=== PATIENT | female | born 1955 | race African-American/Black ===

== ENCOUNTER 2017-05-15 14:45 | Emergency (ER) | payer OTHER, MEDICAID ==
[~2017-05-15] VITALS: Ht 160 cm; Wt 109.0 kg
[~2017-05-15 14:45] MED LIST: LISI1TAB13 PO; METO50TA5 PO; SERT-112 PO
[2017-05-15] MEDS ORDERED: KETOROLAC 30MG/ML VIAL IV STA (22:36)
[2017-05-15] MEDS ORDERED: ONDANSETRON 4MG ODT PO STA (22:36)
[2017-05-15] MEDS ORDERED: SODIUM CHLORIDE 0.9% 500 ML IV ONE (22:36)
[2017-05-15 22:53] LABS: BASOPHILS % 0.9 % (0.0-2.0); EOSINOPHILS % 2.3 % (0.0-5.0); HEMATOCRIT. 38.7 % (36.0-48.0); HEMOGLOBIN. 13.4 g/dL (12.0-16.0); LYMPHOCYTES % 35.6 % (20.0-50.0); MEAN CORPUSCULAR HEMOGLOBIN 28.3 pg (28.0-32.0); MEAN PLATELET VOLUME 10.4 fl (7.4-10.4); MONOCYTES % 7.6 % (2.0-8.0); NEUTROPHILS % 53.6 % (40.0-76.0); PLATELET 129 x1000/uL (130-400); RED BLOOD CELL COUNT 4.72 mill/uL (4.2-5.4); RED CELL DISTRIBUTION WIDTH 15.2 % (11.6-14.6)
[2017-05-15 22:59] LABS: CHLORIDE 104 mEq/L (98-107)
[2017-05-15 23:00] LABS: PROTHROMBIN TIME 10.7 sec (9.4-11.6)
[2017-05-15 23:01] LABS: CLARITY URINE CLEAR (CLEAR); COLOR URINE YELLOW (YELLOW); GLUCOSE URINE NEGATIVE (NEGATIVE); KETONES URINE 2+ (NEGATIVE); LEUKOCYTE ESTERASE URINE TRACE (NEGATIVE); NITRITE URINE NEGATIVE (NEGATIVE); OCCULT BLOOD URINE NEGATIVE (NEGATIVE); PROTEIN URINE 1+ (NEGATIVE); SPECIFIC GRAVITY URINE 1.032 (1.005-1.030)
[2017-05-15 23:05] LABS: CARBON DIOXIDE 31 mEq/L (21-32)
[2017-05-16] MEDS ORDERED: CEFTRIAXONE 1 G PREMIX 50 ML IV ONE (00:15)
[2017-05-16 01:32] VITALS: BP 145/88
== END 2017-05-16 01:35 | disposition home or self-care (01) ==
LOC: ER 16:13
DX: R10.32 Left lower quadrant pain (principal); E11.9 Type 2 diabetes mellitus without complications; I11.0 Hypertensive heart disease with heart failure; I50.9 Heart failure, unspecified; J44.9 Chronic obstructive pulmonary disease, unspecified; E78.00 Pure hypercholesterolemia, unspecified; F17.200 Nicotine dependence, unspecified, uncomplicated
CPT/HCPCS: 36415; 74000; 80053; 81001; 83690; 85025; 85610; 96361; 96365; 96375; 99285; J0696; J1885; J7040; Q0162

== ENCOUNTER 2019-04-01 11:52 | Inpatient (IN) | payer MEDICAID, MEDICARE, OTHER ==
[~2019-04-01] VITALS: Ht 160 cm; Wt 92.5 kg
[~2019-04-01 11:52] MED LIST changes: +METO-539 PO; -METO50TA5 PO
[2019-04-01] MEDS ORDERED: METHYLPREDNISOLONE SOD SUCC 125 MG/2 ML VIAL IV STA (13:03)
[2019-04-01] MEDS ORDERED: MAGNESIUM 2 G PREMIX 50 ML IV STA (13:03)
[2019-04-01] MEDS ORDERED: IPRATROPIUM BROMIDE (0.02%) 0.5MG/2.5ML NEB HHN STA (13:03)
[2019-04-01] MEDS ORDERED: ONDANSETRON HCL 4MG/2ML INJ IV STA (13:03)
[2019-04-01] MEDS ORDERED: MORPHINE SULFATE 4 MG/ML CPJ (NOT FOR IM USE) IV STA (13:03)
[2019-04-01] MEDS ORDERED: ALBUTEROL (0.083%) 2.5MG/3ML NEB HHN STA (13:03)
[2019-04-01] MEDS ORDERED: FAMOTIDINE 20MG/2ML VIAL IV STA (13:03)
[2019-04-01 13:31] LABS: BASOPHILS % 0.3 % (0.0-2.0); EOSINOPHILS % 1.4 % (0.0-5.0); HEMATOCRIT. 35.7 % (36.0-48.0); HEMOGLOBIN. 12.3 g/dL (12.0-16.0); LYMPHOCYTES % 13.8 % (20.0-50.0); MEAN CORPUSCULAR HEMOGLOBIN 28.9 pg (28.0-32.0); MEAN CORPUSCULAR VOLUME 84.1 fL (81.0-99.0); MONOCYTES % 6.1 % (2.0-8.0); NEUTROPHILS % 78.4 % (40.0-76.0); PLATELET 148 x1000/uL (130-400); RED BLOOD CELL COUNT 4.24 mill/uL (4.2-5.4); RED CELL DISTRIBUTION WIDTH 15.6 % (11.6-14.6)
[2019-04-01 13:34] LABS: CHLORIDE 109 mEq/L (98-107)
[2019-04-01] MEDS ORDERED: FUROSEMIDE 20MG/2ML VIAL IVP ONE (15:30)
[2019-04-01] MEDS ORDERED: ACETAMINOPHEN 650MG SUPP PR PRN (16:15)
[2019-04-01] MEDS ORDERED: ONDANSETRON HCL 4MG/2ML INJ IV PRN (16:15)
[2019-04-01] MEDS ORDERED: ACETAMINOPHEN 325MG TABLET PO PRN (16:15)
[2019-04-01] MEDS ORDERED: CLONIDINE 0.1MG TABLET PO PRN (16:15)
[2019-04-01] MEDS ORDERED: MAGNESIUM/ALUMINUM HYDROXIDE/SIMETHICONE 30ML UDC PO PRN (16:15)
[2019-04-01] MEDS ORDERED: LEVOFLOXACIN 500MG PREMIX 100 ML IV SCH (16:15)
[2019-04-01] MEDS ORDERED: IPRATROPIUM/ALBUTEROL 0.5-3(2.5)MG/3ML NEB NEB PRN (16:15)
[2019-04-01] MEDS ORDERED: GUAIFENESIN 200MG/10ML SUGAR FREE UDC PO PRN (16:15)
[2019-04-01] MEDS ORDERED: LORAZEPAM 0.5MG TABLET PO PRN (16:15)
[2019-04-01] MEDS ORDERED: DEXTROSE 50% WATER 50ML SYRINGE IV PRN (16:15)
[2019-04-01] MEDS ORDERED: NA PHOS,M-B/NA PHOS,DI-BA ENEMA 118ML PR PRN (16:15)
[2019-04-01] MEDS ORDERED: HYDROCODONE/ACETAMINOPHEN 5/325MG TABLET PO PRN (16:15)
[2019-04-01] MEDS ORDERED: DOCUSATE SODIUM 100MG CAPSULE PO PRN (16:15)
[2019-04-01] MEDS ORDERED: POTA20TA82 PO (17:00)
[2019-04-01] MEDS ORDERED: ANAS1TAB7 PO (17:00)
[2019-04-01] MEDS ORDERED: INSU100I28 SQ (17:00)
[2019-04-01] MEDS ORDERED: ALBU6.7H9 INH (17:00)
[2019-04-01 17:47] VITALS: BP 144/48
[2019-04-01] MEDS: METHYLPREDNISOLONE SOD SUCC 40 MG/ML VIAL IV SCH (17:51)
[2019-04-01] MEDS: PANTOPRAZOLE 40MG DR TABLET PO SCH (17:51)
[2019-04-01] MEDS: FOLIC ACID 1MG TABLET PO SCH (17:51)
[2019-04-01] MEDS: MULTIVITAMINS,THER W-MINERALS TABLET PO SCH (17:51)
[2019-04-01] MEDS: THIAMINE HCL 100MG TABLET PO SCH (17:51)
[2019-04-01] MEDS: NICOTINE 7MG PATCH TD SCH (17:52)
[2019-04-01] MEDS: BLOOD SUGAR DIAGNOSTIC STRIP TEST SCH ×2 (17:52→21:14)
[2019-04-01] MEDS: INSULIN LISPRO 100 UNITS/ML SUBCUT SCH ×2 (17:53→21:15)
[2019-04-01 18:58] LABS: CLARITY URINE CLEAR (CLEAR); COLOR URINE YELLOW (YELLOW); KETONES URINE 1+ (NEGATIVE); LEUKOCYTE ESTERASE URINE NEGATIVE (NEGATIVE); NITRITE URINE POSITIVE (NEGATIVE); OCCULT BLOOD URINE TRACE (NEGATIVE); PROTEIN URINE 1+ (NEGATIVE); SPECIFIC GRAVITY URINE 1.017 (1.005-1.030); UROBILINOGEN URINE 0.2 E.U./dL (0.2-1.0)
[2019-04-01 19:09] LABS: *AMPHETAMINES SCREEN URINE NEGATIVE (NEGATIVE); *BARBITURATES SCREEN URINE NEGATIVE (NEGATIVE); *BENZODIAZEPINES SCREEN URINE NEGATIVE (NEGATIVE); *COCAINE SCREEN URINE PRESUMTIVE POSITIVE (NEGATIVE); METHADONE URINE SCREEN NEGATIVE (NEGATIVE)
[2019-04-01 19:10] LABS: CANNABINOID URINE SCREEN PRESUMTIVE POSITIVE (NEGATIVE); OPIATES URINE SCREEN PRESUMTIVE POSITIVE (NEGATIVE); PHENCYCLIDINE URINE SCREEN NEGATIVE (NEGATIVE)
[2019-04-01 20:00] VITALS: BP 133/46
[2019-04-01] MEDS: BUDESONIDE 0.5MG/2ML NEB HHN SCH (20:06)
[2019-04-01] MEDS: IPRATROPIUM/ALBUTEROL 0.5-3(2.5)MG/3ML NEB NEB SCH (20:07)
[2019-04-01] MEDS: ENOXAPARIN 30MG/0.3ML SYR SUBCUT SCH (21:13)
[2019-04-01] MEDS: LEVOFLOXACIN 250MG PREMIX 50 ML IV SCH (21:14)
[2019-04-01 21:54] LABS: INR 1.1; PROTHROMBIN TIME 10.9 sec (9.6-11.0)
[2019-04-01 22:00] VITALS: BP 141/66
[2019-04-02] VITALS: BP 141/66
[2019-04-02 00:15] LABS: CREATINE KINASE 52 IU/L (26-192)
[2019-04-02 00:20] LABS: CREATINE KINASE MB FRACTION < 1.0 ng/mL (0.5-3.6)
[2019-04-02] MEDS: IPRATROPIUM/ALBUTEROL 0.5-3(2.5)MG/3ML NEB NEB SCH ×3 (01:53→15:25)
[2019-04-02] MEDS: METHYLPREDNISOLONE SOD SUCC 40 MG/ML VIAL IV SCH ×3 (02:03→17:24)
[2019-04-02 04:00] VITALS: BP 149/58
[2019-04-02] MEDS: PANTOPRAZOLE 40MG DR TABLET PO SCH (06:07)
[2019-04-02] MEDS: BLOOD SUGAR DIAGNOSTIC STRIP TEST SCH ×3 (06:07→17:24)
[2019-04-02] MEDS: INSULIN LISPRO 100 UNITS/ML SUBCUT SCH ×3 (06:15→17:15)
[2019-04-02 06:43] LABS: HEMATOCRIT. 33.5 % (36.0-48.0); HEMOGLOBIN. 11.5 g/dL (12.0-16.0); MEAN CORPUSCULAR HEMOGLOBIN 29.1 pg (28.0-32.0); MEAN CORPUSCULAR VOLUME 84.6 fL (81.0-99.0); MEAN PLATELET VOLUME 11.1 fl (7.4-10.4); PLATELET 134 x1000/uL (130-400); RED BLOOD CELL COUNT 3.96 mill/uL (4.2-5.4); RED CELL DISTRIBUTION WIDTH 15.9 % (11.6-14.6)
[2019-04-02] MEDS: DIPHENHYDRAMINE 50MG/ML VIAL IV PRN ×2 (06:48→18:10)
[2019-04-02 08:00] VITALS: BP 141/53
[2019-04-02] MEDS ORDERED: FUROSEMIDE 40MG/4ML VIAL IVP SCH (09:00)
[2019-04-02] MEDS: MULTIVITAMINS,THER W-MINERALS TABLET PO SCH (09:08)
[2019-04-02] MEDS: ENOXAPARIN 30MG/0.3ML SYR SUBCUT SCH (09:08)
[2019-04-02] MEDS: FOLIC ACID 1MG TABLET PO SCH (09:08)
[2019-04-02] MEDS: NICOTINE 7MG PATCH TD SCH (09:09)
[2019-04-02] MEDS: THIAMINE HCL 100MG TABLET PO SCH (09:09)
[2019-04-02] MEDS ORDERED: FUROSEMIDE 20MG/2ML VIAL IVP SCH (09:40)
[2019-04-02 10:05] LABS: CHLORIDE 105 mEq/L (98-107)
[2019-04-02 10:15] LABS: HDL CHOLESTEROL 61 mg/dL (40-59); LDL CHOLESTEROL 101 mg/dL (5-100)
[2019-04-02 10:17] LABS: CREATINE KINASE MB FRACTION < 1.0 ng/mL (0.5-3.6); T4 FREE 1.21 ng/dL (0.76-1.46)
[2019-04-02 10:20] LABS: CREATINE KINASE 45 IU/L (26-192)
[2019-04-02] MEDS: BUDESONIDE 0.5MG/2ML NEB HHN SCH (10:55)
[2019-04-02 11:10] LABS: BG BASE EXCESS 1.4 mmol/L (-2.0-2.0); BG CARBOXYHEMOGLOBIN 0.3 % (0.5-1.5); BG DEOXYHEMOGLOBIN 4.8 % (0.0-5.0); BG FRACTION INSPIRED OXYGEN 21; BG HCO3 ACT 25.9 mmol/L (22.0-26.0); BG METHEMOGLOBIN 0.3 % (0.0-1.5); BG OXYGEN SATURATION 95.2 % (92.0-98.5); BG OXYHEMOGLOBIN 94.6 % (94.0-97.0); BG PCO2 40.4 mmHg (35.0-45.0); BG PH 7.424 (7.350-7.450); BG PO2 76.7 mmHg (75.0-100.0); BG SAMPLE SITE RIGHT BRACHIAL; BG TOTAL HEMOGLOBIN 12.6 g/dL (12.0-18.0); BG VENT MODE ROOM AIR
[2019-04-02 12:00] VITALS: BP 138/48
[2019-04-02 13:12] LABS: PLATELET ESTIMATE NORMAL
[2019-04-02 16:00] VITALS: BP 133/48
[2019-04-02] MEDS: LEVOFLOXACIN 250MG PREMIX 50 ML IV SCH (17:24)
[2019-04-02 17:34] VITALS: BP 130/49
[2019-04-02] MEDS ORDERED: FAMOTIDINE 20MG TABLET PO SCH (21:00)
== END 2019-04-02 19:15 | disposition home or self-care (01) | DRG 917 ==
LOC: ER 11:52 → 5WST 15:30 → EDBEDREQTM 15:34 → ENRESERV 15:59 → SUPCPDRO 16:02
PROVIDERS: ADMIT Internal Medicine; ATTEND Internal Medicine
PROC: 5A09357 Assistance with Respiratory Ventilation, Less than 24 Consecutive Hours, Continuous Positive Airway Pressure (ICD-10-PCS; principal; 2019-04-02)
DX: T40.5X1A Poisoning by cocaine, accidental (unintentional), initial encounter (principal); I50.43 Acute on chronic combined systolic (congestive) and diastolic (congestive) heart failure; J44.1 Chronic obstructive pulmonary disease with (acute) exacerbation; E66.2 Morbid (severe) obesity with alveolar hypoventilation; N39.0 Urinary tract infection, site not specified; D68.59 Other primary thrombophilia; K29.20 Alcoholic gastritis without bleeding; R06.03 Acute respiratory distress; I11.0 Hypertensive heart disease with heart failure; K52.9 Noninfective gastroenteritis and colitis, unspecified; E78.00 Pure hypercholesterolemia, unspecified; E78.5 Hyperlipidemia, unspecified; E86.0 Dehydration; E11.9 Type 2 diabetes mellitus without complications; F17.210 Nicotine dependence, cigarettes, uncomplicated; K21.9 Gastro-esophageal reflux disease without esophagitis; N20.0 Calculus of kidney; I16.0 Hypertensive urgency; F14.90 Cocaine use, unspecified, uncomplicated; Z79.4 Long term (current) use of insulin; Z79.811 Long term (current) use of aromatase inhibitors; Z79.899 Other long term (current) drug therapy; Z90.10 Acquired absence of unspecified breast and nipple; Z90.710 Acquired absence of both cervix and uterus; Z85.3 Personal history of malignant neoplasm of breast; Z68.36 Body mass index [BMI] 36.0-36.9, adult; Z98.51 Tubal ligation status; Y92.89 Other specified places as the place of occurrence of the external cause
CPT/HCPCS: 36415; 36600; 71045; 74176; 80061; 80305; 81003; 82375; 82550; 82553; 82805; 82962; 83036; 83880; 84439; 84443; 84484; 87077; 87186; 93005; 93306; 93970; 94640; 94644; 94660; 97162; 99291; J1200; J1650; J1815; J1940; J1956; J2270; J2405; J2920; J2930; J3475; J3490; J7611; J7620; J7626

== ENCOUNTER 2019-09-30 10:06 | Emergency (ER) | payer MEDICARE, MEDICAID ==
[~2019-09-30] VITALS: Ht 152.4 cm; Wt 91.0 kg
[~2019-09-30 10:06] MED LIST changes: +ALBU6.7H9 INH; +INSU100I28 SQ; -METO-539 PO; -SERT-112 PO
[2019-09-30] MEDS ORDERED: ONDANSETRON HCL 4MG/2ML INJ IV STA (10:48)
[2019-09-30] MEDS ORDERED: SODIUM CHLORIDE 0.9% 250 ML IV ONE (10:48)
[2019-09-30] MEDS ORDERED: MORPHINE SULFATE 4 MG/ML CPJ (NOT FOR IM USE) IV STA (10:48)
[2019-09-30 11:21] LABS: BASOPHILS % 0.8 % (0.0-2.0); EOSINOPHILS % 1.9 % (0.0-5.0); HEMATOCRIT. 37.6 % (36.0-48.0); HEMOGLOBIN. 12.9 g/dL (12.0-16.0); LYMPHOCYTES % 10.6 % (20.0-50.0); MEAN CORPUSCULAR HEMOGLOBIN 30.2 pg (28.0-32.0); MEAN CORPUSCULAR VOLUME 88.3 fL (81.0-99.0); MEAN PLATELET VOLUME 11.1 fl (7.4-10.4); MONOCYTES % 5.6 % (2.0-8.0); NEUTROPHILS % 81.1 % (40.0-76.0); PLATELET 177 x1000/uL (130-400); RED BLOOD CELL COUNT 4.26 mill/uL (4.2-5.4)
[2019-09-30 11:28] LABS: CHLORIDE 106 mEq/L (98-107)
[2019-09-30 14:34] LABS: CLARITY URINE CLEAR (CLEAR); COLOR URINE YELLOW (YELLOW); KETONES URINE 1+ (NEGATIVE); LEUKOCYTE ESTERASE URINE NEGATIVE (NEGATIVE); NITRITE URINE NEGATIVE (NEGATIVE); OCCULT BLOOD URINE NEGATIVE (NEGATIVE); PROTEIN URINE NEGATIVE (NEGATIVE); SPECIFIC GRAVITY URINE 1.014 (1.005-1.030); UROBILINOGEN URINE 0.2 E.U./dL (0.2-1.0)
[2019-09-30 16:03] VITALS: BP 155/71
== END 2019-09-30 16:05 | disposition home or self-care (01) ==
LOC: ER 10:06
DX: R10.9 Unspecified abdominal pain (principal); I11.0 Hypertensive heart disease with heart failure; I50.9 Heart failure, unspecified; E78.00 Pure hypercholesterolemia, unspecified; E11.9 Type 2 diabetes mellitus without complications; Z85.3 Personal history of malignant neoplasm of breast; Z98.51 Tubal ligation status; Z90.710 Acquired absence of both cervix and uterus; Z98.890 Other specified postprocedural states
CPT/HCPCS: 36415; 71045; 74176; 80053; 81003; 83690; 83880; 84484; 85025; 96361; 96374; 96375; 99285; J2270; J2405; J7030

== ENCOUNTER 2020-03-08 17:07 | Inpatient (IN) | payer MEDICARE, MEDICAID ==
[~2020-03-08] VITALS: Ht 160 cm; Wt 78.1 kg
[~2020-03-08 17:07] MED LIST changes: +ALBU90AE INH; +AMLO5TAB4 PO; +ASPI-1497 MT; +ATOR80TA MT; +BLOO1KIT74 TP; +CLOP75TA4 MT; +FLUT1AER INH; +FURO-151 MT; -INSU100I28 SQ; -LISI1TAB13 PO; +LOSA25TA3 PO; +METO25TA6 PO
[2020-03-08] MEDS ORDERED: BUMETANIDE 0.25MG/ML 2ML VIAL IV ONE (17:45)
[2020-03-08 18:00] LABS: CHLORIDE 109 mEq/L (98-107)
[2020-03-08 18:01] LABS: HEMOGLOBIN. 11.4 g/dL (12.0-16.0); MEAN CORPUSCULAR HEMOGLOBIN 27.2 pg (28.0-32.0); MEAN CORPUSCULAR VOLUME 83.4 fL (81.0-99.0); MEAN PLATELET VOLUME 10.2 fl (7.4-10.4); PLATELET 198 x1000/uL (130-400); RED BLOOD CELL COUNT 4.19 mill/uL (4.2-5.4); RED CELL DISTRIBUTION WIDTH 16.3 % (11.6-14.6)
[2020-03-08 18:05] LABS: ETHANOL BLOOD < 10 mg/dL
[2020-03-08 18:21] LABS: PLATELET ESTIMATE NORMAL
[2020-03-09] VITALS (13 sets, daily range): BP systolic 124–145; BP diastolic 54–118
[2020-03-09] MEDS ORDERED: DEXTROSE 50% WATER 50ML SYRINGE IV PRN (02:00)
[2020-03-09] MEDS ORDERED: ACETAMINOPHEN 325MG TABLET PO PRN ×2 (02:00→13:45)
[2020-03-09] MEDS ORDERED: IPRATROPIUM/ALBUTEROL 0.5-3(2.5)MG/3ML NEB HHN PRN (02:00)
[2020-03-09 06:38] LABS: CHLORIDE 107 mEq/L (98-107)
[2020-03-09] MEDS: BLOOD SUGAR DIAGNOSTIC STRIP TEST SCH ×4 (06:40→20:28)
[2020-03-09 07:13] LABS: BASOPHILS % 0.8 % (0.0-2.0); EOSINOPHILS % 1.7 % (0.0-5.0); HEMATOCRIT. 32.5 % (36.0-48.0); HEMOGLOBIN. 11.1 g/dL (12.0-16.0); LYMPHOCYTES % 11.4 % (20.0-50.0); MEAN CORPUSCULAR HEMOGLOBIN 28.5 pg (28.0-32.0); MEAN CORPUSCULAR VOLUME 83.2 fL (81.0-99.0); MEAN PLATELET VOLUME 10.6 fl (7.4-10.4); MONOCYTES % 5.9 % (2.0-8.0); NEUTROPHILS % 80.2 % (40.0-76.0); PLATELET 178 x1000/uL (130-400); RED BLOOD CELL COUNT 3.91 mill/uL (4.2-5.4); RED CELL DISTRIBUTION WIDTH 16.1 % (11.6-14.6)
[2020-03-09] MEDS: INSULIN LISPRO 100 UNITS/ML SUBCUT SCH ×4 (07:20→20:35)
[2020-03-09] MEDS ORDERED: ENOXAPARIN 30MG/0.3ML SYR SUBCUT SCH (09:00)
[2020-03-09] MEDS ORDERED: FUROSEMIDE 40MG/4ML VIAL IVP SCH (09:00)
[2020-03-09] MEDS: HYDRALAZINE HCL 50MG TABLET PO SCH ×2 (09:36→20:34)
[2020-03-09] MEDS: CARVEDILOL 6.25 MG TABLET PO SCH ×2 (09:37→20:34)
[2020-03-09] MEDS: ENOXAPARIN 40MG/0.4ML SYR SUBCUT SCH (09:38)
[2020-03-09] MEDS: LOSARTAN POTASSIUM 25 MG TABLET PO SCH (11:22)
[2020-03-09] MEDS ORDERED: LORAZEPAM 2MG/ML CPJ IV PRN (13:45)
[2020-03-09] MEDS ORDERED: HYDROCODONE/ACETAMINOPHEN 5/325MG TABLET PO PRN (13:45)
[2020-03-09] MEDS ORDERED: ACETAMINOPHEN 650MG SUPP PR PRN (13:45)
[2020-03-09] MEDS ORDERED: DIPHENHYDRAMINE 50MG/ML VIAL IV PRN (13:45)
[2020-03-09 15:06] LABS: BG BASE EXCESS 6.3 mmol/L (-2.0-2.0); BG CARBOXYHEMOGLOBIN 0.3 % (0.5-1.5); BG FRACTION INSPIRED OXYGEN 21; BG HCO3 ACT 32.1 mmol/L (22.0-26.0); BG METHEMOGLOBIN 0.2 % (0.0-1.5); BG OXYGEN SATURATION 74.9 % (92.0-98.5); BG OXYHEMOGLOBIN 74.5 % (94.0-97.0); BG PCO2 52.1 mmHg (35.0-45.0); BG PH 7.408 (7.350-7.450); BG PO2 40.4 mmHg (75.0-100.0); BG SAMPLE SITE LEFT RADIAL; BG TOTAL HEMOGLOBIN 11.7 g/dL (12.0-18.0); BG VENT MODE ROOM AIR
[2020-03-09] MEDS: METHYLPREDNISOLONE SOD SUCC 40 MG/ML VIAL IV SCH (15:44)
[2020-03-09] MEDS: FUROSEMIDE 40MG/4ML VIAL IVP SCH ×2 (15:45→18:21)
[2020-03-09] MEDS: CLOPIDOGREL 75MG TABLET PO SCH (15:45)
[2020-03-09] MEDS: ASPIRIN 81MG EC TABLET PO SCH (15:45)
[2020-03-09] MEDS: BUDESONIDE 0.5MG/2ML NEB HHN SCH (18:00)
[2020-03-09] MEDS ORDERED: LACTULOSE 20G/30ML UDC PO PRN (21:00)
[2020-03-09] MEDS ORDERED: FAMOTIDINE 20MG TABLET PO SCH (21:00)
[2020-03-09] MEDS ORDERED: ATORVASTATIN CALCIUM 40MG TABLET PO SCH (21:00)
[2020-03-09] MEDS: IPRATROPIUM/ALBUTEROL 0.5-3(2.5)MG/3ML NEB HHN SCH (21:43)
[2020-03-10] VITALS (11 sets, daily range): BP systolic 120–142; BP diastolic 50–68
[2020-03-10] MEDS: IPRATROPIUM/ALBUTEROL 0.5-3(2.5)MG/3ML NEB HHN SCH ×3 (02:10→14:53)
[2020-03-10] MEDS: METHYLPREDNISOLONE SOD SUCC 40 MG/ML VIAL IV SCH ×2 (02:25→14:11)
[2020-03-10] MEDS: BLOOD SUGAR DIAGNOSTIC STRIP TEST SCH ×3 (06:12→16:30)
[2020-03-10] MEDS: FUROSEMIDE 40MG/4ML VIAL IVP SCH ×2 (06:20→18:31)
[2020-03-10] MEDS: INSULIN LISPRO 100 UNITS/ML SUBCUT SCH ×3 (06:20→16:31)
[2020-03-10 06:27] LABS: HEMATOCRIT. 32.4 % (36.0-48.0); HEMOGLOBIN. 10.9 g/dL (12.0-16.0); MEAN CORPUSCULAR HEMOGLOBIN 27.9 pg (28.0-32.0); MEAN PLATELET VOLUME 10.6 fl (7.4-10.4); PLATELET 191 x1000/uL (130-400); RED BLOOD CELL COUNT 3.91 mill/uL (4.2-5.4)
[2020-03-10 06:34] LABS: CHLORIDE 105 mEq/L (98-107)
[2020-03-10 06:46] LABS: T4 FREE 1.18 ng/dL (0.76-1.46)
[2020-03-10] MEDS: BUDESONIDE 0.5MG/2ML NEB HHN SCH (08:36)
[2020-03-10] MEDS ORDERED: MEDICATION NOT ON FORMULARY EA (Atorvastatin Calcium (Lipitor) 1 TAB) MT SCH (09:00)
[2020-03-10 10:50] LABS: PLATELET ESTIMATE NORMAL
[2020-03-10] MEDS: ENOXAPARIN 40MG/0.4ML SYR SUBCUT SCH (10:54)
[2020-03-10] MEDS: LOSARTAN POTASSIUM 25 MG TABLET PO SCH (10:54)
[2020-03-10] MEDS: HYDRALAZINE HCL 50MG TABLET PO SCH (10:54)
[2020-03-10] MEDS: ASPIRIN 81MG EC TABLET PO SCH (10:55)
[2020-03-10] MEDS: CLOPIDOGREL 75MG TABLET PO SCH (10:55)
[2020-03-10] MEDS: CARVEDILOL 6.25 MG TABLET PO SCH (10:55)
[2020-03-10] MEDS ORDERED: ATOR20TA MT (14:02)
[2020-03-10] MEDS ORDERED: COR6 MT (14:02)
[2020-03-10] MEDS ORDERED: LOSA25TA3 MT (14:02)
[2020-03-10] MEDS ORDERED: FURO-151 PO (14:02)
[2020-03-10] MEDS ORDERED: ASPI-1497 MT (14:02)
[2020-03-10] MEDS ORDERED: AMOX1TAB16 MT (14:04)
[2020-03-10 15:36] LABS: HEMATOCRIT. 33.9 % (36.0-48.0); HEMOGLOBIN. 11.3 g/dL (12.0-16.0); MEAN CORPUSCULAR HEMOGLOBIN 27.5 pg (28.0-32.0); MEAN CORPUSCULAR VOLUME 82.4 fL (81.0-99.0); MEAN PLATELET VOLUME 10.3 fl (7.4-10.4); PLATELET 193 x1000/uL (130-400); RED BLOOD CELL COUNT 4.11 mill/uL (4.2-5.4); RED CELL DISTRIBUTION WIDTH 16.3 % (11.6-14.6)
[2020-03-10 20:13] LABS: CLARITY URINE CLEAR (CLEAR); COLOR URINE YELLOW (YELLOW); KETONES URINE NEGATIVE (NEGATIVE); LEUKOCYTE ESTERASE URINE NEGATIVE (NEGATIVE); NITRITE URINE NEGATIVE (NEGATIVE); OCCULT BLOOD URINE NEGATIVE (NEGATIVE); PH URINE 6.5 (4.5-8.0); PROTEIN URINE NEGATIVE (NEGATIVE); SPECIFIC GRAVITY URINE 1.012 (1.005-1.030); UROBILINOGEN URINE 0.2 E.U./dL (0.2-1.0)
[2020-03-10 20:35] LABS: *AMPHETAMINES SCREEN URINE NEGATIVE (NEGATIVE); *BARBITURATES SCREEN URINE NEGATIVE (NEGATIVE); *BENZODIAZEPINES SCREEN URINE NEGATIVE (NEGATIVE); *COCAINE SCREEN URINE NEGATIVE (NEGATIVE); METHADONE URINE SCREEN NEGATIVE (NEGATIVE); OPIATES URINE SCREEN NEGATIVE (NEGATIVE)
[2020-03-10 20:36] LABS: PLATELET ESTIMATE NORMAL
[2020-03-10 20:36] LABS: CANNABINOID URINE SCREEN NEGATIVE (NEGATIVE); PHENCYCLIDINE URINE SCREEN NEGATIVE (NEGATIVE)
== END 2020-03-10 20:41 | disposition home or self-care (01) | DRG 291 ==
LOC: ER 17:07 → 3WST 18:27 → EDBEDREQTM 18:33 → EDBEDREQ 18:33 → ENRESERV 21:04
PROVIDERS: ADMIT Internal Medicine; ATTEND Internal Medicine
PROC: 5A09357 Assistance with Respiratory Ventilation, Less than 24 Consecutive Hours, Continuous Positive Airway Pressure (ICD-10-PCS; principal; 2020-03-09)
DX: I11.0 Hypertensive heart disease with heart failure (principal); J18.9 Pneumonia, unspecified organism; J44.1 Chronic obstructive pulmonary disease with (acute) exacerbation; J44.0 Chronic obstructive pulmonary disease with (acute) lower respiratory infection; I50.23 Acute on chronic systolic (congestive) heart failure; I42.7 Cardiomyopathy due to drug and external agent; R06.03 Acute respiratory distress; I27.20 Pulmonary hypertension, unspecified; E78.5 Hyperlipidemia, unspecified; D64.9 Anemia, unspecified; E11.65 Type 2 diabetes mellitus with hyperglycemia; F12.10 Cannabis abuse, uncomplicated; F14.10 Cocaine abuse, uncomplicated; I34.0 Nonrheumatic mitral (valve) insufficiency; R09.02 Hypoxemia; F10.10 Alcohol abuse, uncomplicated; R94.31 Abnormal electrocardiogram [ECG] [EKG]; Y90.9 Presence of alcohol in blood, level not specified; Z85.3 Personal history of malignant neoplasm of breast; Z90.10 Acquired absence of unspecified breast and nipple; Z86.73 Personal history of transient ischemic attack (TIA), and cerebral infarction without residual deficits; Z79.84 Long term (current) use of oral hypoglycemic drugs; Z79.899 Other long term (current) drug therapy; Z90.11 Acquired absence of right breast and nipple; Z87.891 Personal history of nicotine dependence; Z79.51 Long term (current) use of inhaled steroids; Z71.51 Drug abuse counseling and surveillance of drug abuser; Z90.710 Acquired absence of both cervix and uterus
CPT/HCPCS: 36415; 36600; 71045; 80048; 80053; 80061; 80305; 80320; 81003; 82375; 82805; 82962; 83036; 83735; 83880; 84439; 84443; 84484; 85025; 93005; 93306; 93970; 94640; 97116; 97162; 99285; J1650; J1815; J1940; J2920; J3490; J7626; G0480